=== PATIENT | male | born 1945 | race Caucasian/White ===

== ENCOUNTER 2023-06-03 21:01 | Emergency (ER) | payer MEDICARE, OTHER ==
[2023-06-03] VITALS (7 sets, daily range): BP systolic 149–204; BP diastolic 63–89
[~2023-06-03] VITALS: Ht 185.4 cm; Wt 106.0 kg
[2023-06-03] MEDS ORDERED: ASPIRIN 81 MG/TAB PO ONE (21:25)
[2023-06-03] MEDS ORDERED: NITROGLYCERIN 0.4 MG/TAB SL SCH (21:25)
[2023-06-03] MEDS ORDERED: HYDROCHLOROTH12.5 MG PO (21:31)
[2023-06-03] MEDS ORDERED: BAYER ASPIRIN E81 MG PO (21:31)
[2023-06-03] MEDS ORDERED: LOPRESSOR25 M1 PO (21:32)
[2023-06-03] MEDS ORDERED: ATORVASTATIN CA40 MG PO (21:33)
[2023-06-03] MEDS ORDERED: AVAPRO300 MG PO (21:33)
[2023-06-03] MEDS ORDERED: KLOR-CON M1010 MEQ PO (21:33)
[2023-06-03] MEDS ORDERED: PROTONIX40 M2 PO (21:34)
[2023-06-03] MEDS ORDERED: LEVOTHYROXIN50 MCG PO (21:34)
[2023-06-03] MEDS ORDERED: NITROGLYCERIN 2% OINT UD 1 GM/PAK TD ONE (21:45)
[2023-06-03 22:04] LABS: BASO% 0.2 % (0-3); EOS% 0.1 % (0-8); HEMATOCRIT 40.4 % (39.0-50.0); HEMOGLOBIN 13.2 g/dl (14.0-18.0); IMMATURE GRANULOCYTES 0.1 % (0.0-5.0); MEAN CELL VOLUME 93.7 fL CALC (80.0-100.0); MEAN CORPUSCULAR HGB 30.6 pG CALC (26.0-32.0); MEAN CORPUSCULAR HGB CONC 32.7 g/dL CAL (32.0-36.0); MONO% 4.5 % (2-13); NEUT# 9.5 thou/uL (1.82-7.42); NEUT% 87.1 % (42-76); RED BLOOD COUNT 4.31 mill/uL (4.70-6.10); RED CELL DISTRI WIDTH 12.8 % (11.5-15.5)
[2023-06-03 22:05] LABS: URINE BILIRUBIN - DIPSTICK Negative (NEGATIVE); URINE BLOOD DIPSTICK Negative (NEGATIVE); URINE GLUCOSE - DIPSTICK Negative (NEGATIVE); URINE KETONE Negative (NEGATIVE); URINE LEUK ESTERASE Negative (NEGATIVE); URINE NITRITE - DIPSTICK Negative (Negative); URINE PH 7.5 (4.5-8.0); URINE PROTEIN - DIPSTICK 30 mg/dL (NEG-TRACE)
[2023-06-03 22:07] LABS: URINE COLOR Yellow
[2023-06-03 22:10] LABS: URINE SQUAMOUS EPITHELIAL CELL MODERATE EPI/hpf (0-FEW)
[2023-06-03] MEDS ORDERED: ONDANSETRON HCl 4 MG/2 ML SDV IV ONE (22:20)
[2023-06-03 22:22] LABS: ALBUMIN 4.2 g/dL (3.2-5.0); ALKALINE PHOSPHATASE 98 u/l (38-126); ANION GAP 10 (6-22 (CALC)); BILIRUBIN, TOTAL 1.4 mg/dL (0.2-1.3); BUN 15 mg/dL (8-23); BUN/CREATININE RATIO 12 (12-20 (CALC)); CARBON DIOXIDE 30 mmol/l (22-30); CHLORIDE 104 mmol/l (95-108); CREATININE 1.2 mg/dL (0.7-1.3); GFR FOR AFR.AMER. > 60 ML/MIN (>=60 (CALC)); GFR OTHER RACES 59 ML/MIN (>=60 (CALC)); POTASSIUM 3.6 mmol/l (3.5-5.1); SGOT/AST 29 u/l (19-48); SODIUM 140 mmol/l (137-146); TOTAL PROTEIN 7.3 g/dL (6.3-8.2)
[2023-06-03 22:24] LABS: D-DIMER 1.18 mg/L (0.19-0.60)
[2023-06-03 22:30] LABS: INTERNATIONAL NORMALIZED RATIO 1.2 RATIO (0.7-1.3); PROTHROMBIN TIME 11.1 SECONDS (9.0-12.5)
[2023-06-04] VITALS (9 sets, daily range): BP systolic 140–162; BP diastolic 60–71
[2023-06-04] MEDS ORDERED: HYDROmorphone HCL 2 MG/AMP IV ONE (01:05)
[2023-06-04] MEDS ORDERED: ONDANSETRON HCl 4 MG/2 ML SDV IV ONE (01:05)
[2023-06-04] MEDS ORDERED: AMOX/K CLAV875 M1 PO (02:03)
[2023-06-04] MEDS ORDERED: PERCOCET 10/31 COMBO PO (02:03)
== END 2023-06-04 02:45 | disposition home or self-care (01) ==
LOC: ED 21:01
PROVIDERS: Emergency Medicine
DX: K80.20 Calculus of gallbladder without cholecystitis without obstruction (principal); I10 Essential (primary) hypertension; I25.10 Atherosclerotic heart disease of native coronary artery without angina pectoris; I48.91 Unspecified atrial fibrillation; E78.5 Hyperlipidemia, unspecified; Z95.1 Presence of aortocoronary bypass graft